=== PATIENT | female | born 1955 | race Caucasian/White ===

== ENCOUNTER → 2018-01-28 15:08 | Outpatient (CLI) | payer BC, SELFPAY ==
--- NOTE | 2018-01-28 15:18 | BD_ITS ---
STUDY: DUAL ENERGY X-RAY ABSORPTIOMETRY / DXA REASON FOR EXAM: Female, 62 years old. Postmenopausal screening TECHNIQUE: Bone Mineral Density (BMD) measurements of lumbar spine and left hip were obtained. COMPARISON: 2005 FINDINGS: Lumbar Spine (L1-L4): g/cm2 (1.129) / T-score (-0.6) / Z-score (0.8) Findings are suggestive of normal bone density with a low fracture risk. Left Femur Total: g/cm2 (0.851) / T-score (-1.2) / Z-score (-0.2) Left Femoral Neck: g/cm2 (0.745) / T-score (-2.1) / Z-score (-0.8) The T-Scores on the most recent prior examination were: Lumbar Spine (L1-L4): There has been worsening of bone density since the previous examination. BD/Dexa Bone Density Study IMPRESSION: The patient is considered normal as outlined below according to World Emmanuel Organization (WHO) criteria with a low fracture risk. There has been worsening of bone density since the previous examination. Reference Information: The T-score is the number of standard deviations above or below the standard which is normal for young adults at their peak bone mineral density. The World Health Organization (WHO) interprets the T-scores as follows: Above -1 Normal bone density Between -1 and -2.5 Osteopenia Equal to / or below -2.5 Osteoporosis As a practical clinical guideline, osteopenia may be graded as follows: Mild -1 through -1.5 Moderate -1.6 through -2.0 Severe -2.1 through -2.4 The Z-score is the number of standard deviations above or below age-matched controls. A Z-score of less than -1.5 would be considered abnormal. References: 1. NIH Osteoporosis and Related Bone Diseases http://www.osteo.org 2. International Society for Clinical Densitometry http://www.iscd.org 3. National Osteoporosis Foundation http://www.nof.org Electronically Signed: Damian Brewer MD at 13:16 EDT , Service support ,
== END ==
PROVIDERS: Family Provider Family Medicine; PCP Family Medicine; Visit Provider Family Medicine
DX: Z78.0 Asymptomatic menopausal state (principal)
CPT/HCPCS: 77080

== ENCOUNTER 2018-04-11 15:00 | Outpatient (RCR) | payer BC, SELFPAY ==
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
--- NOTE | 2018-05-15 16:16 | HP.PTDCSUM ---
HP - PT D/C Summary It has been my pleasure to treat YEFRI DUARTE under orders from Juan M Carbone, for the diagnosis of R shoulder pain for a total of 7 visit(s). Discharge Date: 04/11/18 Please see the following information for a summary of their discharge status. - Subjective Subjective: pt reports that they feel like they are making good progress but credits the weather for the extra sorness they are feeling today. - Pain R shoulder Pain Intensity (Out of 10): 2 - Overall Improvement % Improvement: 85 - Objective Objective/Function: Pt. reports no pain post PT. Pt. continues to progress as expected. Pt. pleased. Pt. urged to be consistent with HEP at home, pt. consents. Pt. has full ROM of R shoulder with minimal increase in symptoms. MMT- 5-/5 throughout without increase in symptoms. Pt. reports increased soreness after work activities. Pt. urged to continue with HEP to increased shoulder stability. - Goals Goal 1:: Pt. to be I with HEP. Goal Progress: Goal Met Goal 2:: Pt. to have full R shoulder ROM without increase in symptoms. Goal Progress: Goal Met Goal 3:: Pt. to have increased R shoulder strength by 1/2 grade of all effected musculature to reduce stress applied to R shoulder with all functional/work activities. Goal Progress: Goal Met Goal 4:: Pt. to have no pain with sleeping allowing for increased quality of life. Goal Progress: Goal Met Goal 5:: Pt. to complete all recreational and work activities with 0-1/10 pain in R shoulder. Goal Progress: Goal Met - Plan Plan: RTC stability/strengthening exercises, work on pain free AAROM progressing to AROM at end ranges of motion as tolerated. Pt. to be Dc to HEP at this point in time. - D/C Information Discharge Comments: Pt. was treated with shoulder strenghening and stability exercises, along with US to reduce symptoms. Pt. progressed very well and has met all goals with PT. Pt. is to continue with exercises on her own at this point in time. If there are questions or concerns regarding this patient's physical therapy, please feel free to call me at [phone]. Thank you for the referral of this patient. Sincerely, Nikolas Montiel
== END 2018-04-11 19:00 | disposition home or self-care (01) ==
LOC: PT 15:00
PROVIDERS: Family Provider Family Medicine; PCP Family Medicine; Visit Provider Family Medicine
DX: M25.511 Pain in right shoulder (principal); G89.29 Other chronic pain
CPT/HCPCS: 97035; 97110; 97161

== ENCOUNTER 2018-06-03 03:35 | Emergency (ER) | payer BC, SELFPAY ==
[2018-06-03 03:36] VITALS: BP 152/114; PULSE 64; RESP 20; TEMP 36.2; O2SAT 97; BMI 29.0
[2018-06-03 04:03] LABS: Bacteria 0 SEEN /hpf (None Seen); Mucous, Urine 0 SEEN /hpf (<or=2+); Squamous Epithelial Cells - UA 0 SEEN /hpf (5-10)
[2018-06-03 04:04] LABS: Color, Urine Red (Yellow); Glucose, Dipstick Normal (Normal); Ketone-Dipstick 5 mg/dl (Negative); Leukocyte Esterase-Dipstick 500 /ul (Negative); Nitrite-Dipstick Negative (Negative); Occult Blood-Urine 250 /ul (Negative); Protein-Dipstick 100 mg/dl (Negative); Urine Bilirubin Dipstick Negative (Negative); Urine Clarity Cloudy (Clear); Urine Urobilinogen Normal (Normal)
[2018-06-03 04:12] LABS: Red Blood Cells-Urine > 100 SEEN /hpf (0-5); White Blood Cells 5-10 SEEN /hpf (0-5)
--- NOTE | 2018-06-03 04:16 | CT_ITS ---
PAINFUL URINATION WITH HEMATURIA,ELEVATED BPBOWEL RESECTION,HYSTERECTOMY,RT HIPHX:KIDNEY CYST. TECHNIQUE: Helically acquired images were obtained of the abdomen and pelvis without oral or IV contrast as per renal stone protocol. A radiation dose optimization technique was used for this scan. IV Contrast dosage and agent: None. Oral contrast: None. COMPARISON: None FINDINGS: Both kidneys are normal in position. The right kidney is atrophic. The left kidney shows multiple cystic structures centrally and these have the appearance of prominent parapelvic cysts. Left hydronephrosis rather than cysts would also be in the differential but is considered less likely. The right and left ureters are nondilated. No renal or ureteral calculi are seen. Adrenal glands are not enlarged. Lung bases: Clear The liver, spleen, pancreas, gallbladder, and biliary system show no CT abnormality on this non-infusion exam. Abdominal aorta is atherosclerotic and is normal in caliber. No ascites or retroperitoneal lymphadenopathy. GI tract: No obstruction. Sigmoid surgical anastomosis which is patent. Normal appendix. Pelvis: Evaluation of the pelvic floor is partly limited secondary to streak artifact related to a right total hip prosthesis. The uterus is surgically absent. The pelvis shows no free fluid or lymphadenopathy. Urinary bladder is poorly distended and suboptimally visualized. Bones: No acute osseous abnormality seen. CT/Abdomen/Pelvis without Cont IMPRESSION: 1. Atrophic right kidney. 2. Numerous parapelvic cysts of the left kidney are believed likely, although note that left hydronephrosis related to UPJ type narrowing would be included in the differential on this non-infusion exam. 3. More definitive evaluation could be obtained with CT urogram technique. Alternatively, diuretic renal scintigraphy could be performed. Renal ultrasound not recommended. Individualized dose optimization techniques were used for this CT. at 0551 Reported and signed by: Valentin Rivera MD Electronically Signed: Valentin Rivera, at 5:48 EST Tel , Service support ,
[2018-06-03] MEDS: Ketorolac 30 MG/ML Syringe IV (04:44)
[2018-06-03 04:58] LABS: Absolute Lymphocyte Count 1.76 X10^3/ul (0.83-4.51); Absolute Neutrophil Count 8.9 X10^3/uL (2.0-7.7); Basophil# 0.05 X10^3/uL; Basophil% 0.4 % (0-1); Eosinophil# 0.16 X10^3/uL; Eosinophils% 1.4 % (0-5); Hematocrit 42.7 % (37-47); Hemoglobin 14.4 g/dl (12.0-15.0); Lymphocyte # 1.76 X10^3/ul (4.0); Lymphocyte % 15.2 % (19-41); Mean Corp Hgb Conc 33.7 g/gl (32-36); Mean Corpuscular Hgb 29.5 pg (27.0-32.0); Mean Corpuscular Volume 87.5 fL (81-99); Monocyte# 0.76 X10^3/uL; Monocyte% 6.5 % (0-10); Neutrophil # 8.87 X10^3/uL (2.7-7.7); Neutrophil % 76.4 % (47-70); Platelet Count 346 K/mm3 (150-450); RBC Distribution Width SD 41.3 fl (35.1-43.9); Red Blood Count 4.88 M/mm3 (4.2-5.4); White Blood Count 11.6 K/mm3 (4.4-11.0)
[2018-06-03 05:00] LABS: POSITIVE COUNT NO; POSITIVE DIFFERENTIAL NO; POSITIVE MORPHOLOGY NO
[2018-06-03 05:13] LABS: Anion Gap 10 (5-15); BUN 20 mg/dL (7-18); BUN/Creat Ratio 16.3 RATIO (10-20); Calcium,Total 9.2 mg/dL (8.5-10.1); Chloride 109 mmol/L (98-107); Creatinine, Serum 1.23 mg/dL (0.55-1.02); EST Glomerular Filtration Rate 47 mL/min (>60); Est Glom Filt Rate - Afr Amer 57 mL/min (>60); Estimated Creatinine Clearance 37.51 ml/min; Glucose 85 mg/dL (74-106); Potassium 4.1 mmol/L (3.5-5.1); Sodium Level 143 mmol/L (136-145)
--- NOTE | 2018-06-03 06:00 | ED.VISSUMM ---
- ER Visit Summary Date of Service: 06/03/18 Chief Complaint: Suprapubic abdominal pain History of Present Illness: The patient is a 62 F who presents with abdominal pain. She complains of lower abdominal pain. This began tonight. She also notes urinary urgency urinary frequency and hematuria. She denies any dysuria. No fevers chest pain shortness of breath vomiting diarrhea. No history of prior similar symptoms. Physical Examination: Afebrile initial blood pressure 152/114 vitals otherwise unremarkable Moist mucous membranes Heart regular rate and rhythm Lungs are clear Abdomen soft nondistended she does have suprapubic abdominal tenderness without guarding without rebound Test Results: Urinalysis showed 500 leukocyte esterase, 250 10 WBCs, greater than 100 RBCs, no bacteria. Labs otherwise notable for white blood cell count 11.6, BUN 20, creatinine 1.23. CT of the abdomen and pelvis shows an atrophic right kidney and numerous parapelvic cysts. No note made of ureteral lithiasis. Emergency Department Course and Treatment: Initially I thought the patient's symptoms may just be due to UTI. Urinalysis does show some pyuria but no bacteria and large hematuria. Given lower abdominal pain that is concerning for possible distal ureteral calculus. Labs and CT were obtained. The does not appear to be any ureterolithiasis. Patient was advised of the findings on her CT. We will treat for UTI and also have the patient follow-up with urology. She was referred. Patient understands to return for new or worsening symptoms and was discharged home. Treatment Plan: [] Disposition: Discharge Impression: Hematuria Suprapubic abdominal pain This note was generated with [employer] dictation software. It may contain incorrect words, spelling, and punctuation that were not noted in review of the chart prior to signing ED Disposition - Plan for ED Patient: Chief Complaint: Complaint Referrals: Juan M Carbone [Primary Care Provider] -
--- NOTE | 2018-06-03 06:03 | ED.DEP ---
ED Disposition - Plan for ED Patient: Chief Complaint: Complaint Instructions: ED UTI Cystitis Female, ED Hematuria Prescriptions: Smz/Tmp Ds [Bactrim Ds] 1 tab PO BID #[id number] tab Referrals: Juan M Carbone [Primary Care Provider] - Lauren Ellis MD [STAFF PHYSICIAN] -
[2018-06-03 06:17] VITALS: RESP 18
--- OUTSIDE RECORDS SUMMARY | 2018-07-15 17:55 | XMS RPT_ITS ---
:1955 Author Organization [facility] Care Team Providers Name Role Phone JUAN M JALLOH Referring Unavailable JUAN M JALLOH E Referring Unavailable JUAN M JALLOH E Referring Unavailable JUAN M JALLOH E Referring Unavailable JUAN M JALLOH E Referring Unavailable JUAN M JALLOH E Referring Unavailable Juan M Jalloh Attending Unavailable Juan M Jalloh Referring Unavailable Juan M Jalloh Primary Care Unavailable Juan M Jalloh Attending Unavailable Juan M Jalloh Referring Unavailable Juan M Jalloh Primary Care Unavailable Referred, Self Attending Unavailable Juan M Jalloh Primary Care Unavailable Juan M Jalloh Primary Care Unavailable Chacorta Whyte Attending Unavailable PROBLEMS PROBLEMS DATE TYPE CONDITION / CODE ATTENDING STATUS SOURCE 06/03/2018 Unknown M25.511 - Pain in Juan M Jalloh Active [facility] right shoulder / Community M25.511(ICD-10) Hospital Repository 01/28/2018 Unknown Z78.0 - Juan M Jalloh Active [facility] Asymptomatic Community menopausal state / Hospital Z78.0(ICD-10) Repository 06/27/2017 Active Unknown / NA Active [facility] UNK(Unknown) Main [place] Repository PROCEDURES PROCEDURES No Procedure Records FoundRESULTS RESULTS DISCHARGE INSTRUCTION Observed: 06/03/2018 Status: F Source: [place] 6:04 AM [facility] [place], [place] REPOSITORY [facility] Medical Records Department [address] [place] [address] Discharge Instruction 06/03/18602 MR#: [id number] Acct: [id number] Name: YEFRI RALPH Rep #: [id number] : 1955 62 From: Chacorta Whyte MD PCP: Juan M Jalloh Status: REG ER ED Disposition - Plan for ED Patient: Chief Complaint: Complaint Instructions: ED UTI Cystitis Female, ED Hematuria Prescriptions: Smz/Tmp Ds [Bactrim Ds] 1 tab PO BID #14 tab Referrals: Juan M Jalloh [Primary Care Provider] - Lauren Ellis MD [STAFF PHYSICIAN] - What to do if you have Problems For any increased pain, shortness of breath, bleeding, nausea or vomiting, chest pain, or any unexpected problems, contact your Primary Care Provider. Call [facility] ([phone]) or report to the closest Emergency Room. Call 911 if necessary. 06/03/18603 <Electronically signed by Chacorta Whyte MD> Date Chacorta Whyte MD Cosigner Signature (If Indicated): Date CC: Juan M Jalloh EMERGENCY DEPARTMENT Observed: 06/03/2018 Status: F Source: GAB[place]EL SUMMARY 6:03 AM [facility] [place], [place] REPOSITORY [facility] Medical Records Department [address] [place] [address] Emergency Department Summary 06/03/18 0600 MR#: [id number] Acct: [id number] Name: YEFRI RALPH Rep #: [id number] : 1955 62 From: Chacorta Whyte MD PCP: Juan M Jalloh Status: REG ER - ER Visit Summary Date of Service: 06/03/18 Chief Complaint: Suprapubic abdominal pain History of Present Illness: The patient is a 62 F who presents with abdominal pain. She complains of lower abdominal pain. This began tonight. She also notes urinary urgency urinary frequency and hematuria. She denies any dysuria. No fevers chest pain shortness of breath vomiting diarrhea. No history of prior similar symptoms. Physical Examination: Afebrile initial blood pressure 152/114 vitals otherwise unremarkable Moist mucous membranes Heart regular rate and rhythm Lungs are clear Abdomen soft nondistended she does have suprapubic abdominal tenderness without guarding without rebound Test Results: Urinalysis showed 500 leukocyte esterase, 250 10 WBCs, greater than 100 RBCs, no bacteria. Labs otherwise notable for white blood cell count 11.6, BUN 20, creatinine 1.23. CT of the abdomen and pelvis shows an atrophic right kidney and numerous parapelvic cysts. No note made of ureteral lithiasis. Emergency Department Course and Treatment: Initially I thought the patient's symptoms may just be due to UTI. Urinalysis does show some pyuria but no bacteria and large hematuria. Given lower abdominal pain that is concerning for possible distal ureteral calculus. Labs and CT were obtained. The does not appear to be any ureterolithiasis. Patient was advised of the findings on her CT. We will treat for UTI and also have the patient follow-up with urology. She was referred. Patient understands to return for new or worsening symptoms and was discharged home. Treatment Plan: [] Disposition: Discharge Impression: Hematuria Suprapubic abdominal pain This note was generated with Dianwoba dictation software. It may contain incorrect words, spelling, and punctuation that were not noted in review of the chart prior to signing ED Disposition - Plan for ED Patient: Chief Complaint: Complaint Referrals: Juan M Jalloh [Primary Care Provider] - What to do if you have Problems For any increased pain, shortness of breath, bleeding, nausea or vomiting, chest pain, or any unexpected problems, contact your Primary Care Provider. Call [facility] ([phone]) or report to the closest Emergency Room. Call 911 if necessary. 06/03/18 0603 <Electronically signed by Chacorta Whyte MD> Date Chacorta Whyte MD Cosigner Signature (If Indicated): Date CC: Juan M Jalloh CBC W/DIFF, AUTOMATED Collected: 06/03/2018 Status: F Source: [place] 4:40 AM [facility] [place] [place] REPOSITORY TYPE CODE TESTS RESULT OUT OF RANGE REFERENCE UNITS LAB L100.1000 4.4-11.0 K/mm3 High WBC 11.6 LAB L100.1200 4.2-5.4 M/mm3 Normal RBC 4.88 LAB L100.1300 12.0-15.0 g/dl Normal HGB 14.4 LAB L100.1400 37-47 % Normal HCT 42.7 LAB L100.1500 81-99 fL Normal MCV 87.5 LAB L100.1600 27.0-32.0 pg Normal MCH 29.5 LAB L100.1700 32-36 g/gl Normal MCHC 33.7 LAB L100.1810 11.6-14.6 % Normal RDW CV 13.0 LAB L100.1820 35.1-43.9 fl Normal RDW SD 41.3 LAB L100.1900 150-450 K/mm3 Normal PLT 346 LAB L100.2000 6.2-12.0 fl Normal MPV 10.0 LAB L100.2100 47-70 % High NEUT% 76.4 LAB L100.2200 19-41 % Low LY% 15.2 LAB L100.2300 0-10 % Normal MONO% 6.5 LAB L100.2400 0-5 % Normal EO% 1.4 LAB L100.2500 0-1 % Normal BASO% 0.4 LAB L100.2550 0.0-0.9 % Normal IM GRAN % 0.100 Result Comment: IG% - Immature Granulocytes (promyelocytes, myelocytes and metamyelocytes) > 1% indicates that a LEFT SHIFT is Present. LAB L100.2620 2.0-7.7 X10 3/uL High Absolute Neut 8.9 LAB L100.2720 0.83-4.51 X10 3/ul Normal Absolute Lymph 1.76 Performed By: #### L100.0100 #### [facility] [address] [place], [place], [address] BASIC METABOLIC Collected: 06/03/2018 Status: F Source: [place] PROFILE ([facility]) 4:40 AM [facility] [place] [place] REPOSITORY TYPE CODE TESTS RESULT OUT OF RANGE REFERENCE UNITS LAB L501.0100 74-106 mg/dL Normal GLU 85 Result Comment: Please note revised GLUCOSE reference range effective 2017. LAB L501.1000 7-18 mg/dL High BUN 20 LAB L501.1100 0.55-1.02 mg/dL High CREAT,SERUM 1.23 Result Comment: The validity of the calculated GFR AND GFRAA in patients over 70 years has not been determined. Clinical correlation is essential. LAB L501.1110 >60 mL/min Low EST GFR 47 Result Comment: Non- GFR Calc LAB L501.1115 >60 mL/min Low EST GFR - AA 57 Result Comment: GFR Calc LAB L501.1255 ml/min Normal Estimated CRCL 37.51 LAB L501.1300 10-20 RATIO Normal BUN/CRE 16.3 LAB L501.2200 8.5-10 mg/dL Normal .1 CA 9.2 LAB L501.5300 136-14 mmol/L Normal 5 NA 143 LAB L501.5600 3.5-5. mmol/L Normal 1 K 4.1 LAB L501.5900 98-107 mmol/L High CL 109 LAB L501.6100 21.0-3 mmol/L Normal 2.0 CO2 24.0 LAB L501.6200 5-15 Normal GAP 10 Performed By: #### L500.2500 #### [facility] [address] [place], [place], [address] ABDOMEN/PELVIS WITHOUT Observed: 06/03/2018 Status: F Source: [place] CONT 4:16 AM [facility] [place] [place] REPOSITORY [facility] [place] [address] Abdomen/Pelvis without Cont MR#: [id number] Acct: [id number] Name: YEFRI RALPH Rep #: [id number] : 1955 F 62 From: Valentin Rivera MD PCP: Juan M Jalloh Status: REG ER Study: Abdomen/Pelvis without Cont Date of Exam: 06/03/18 Exam# [id number] Ordering Dr: Chacorta Whyte MD PAINFUL URINATION WITH HEMATURIA,ELEVATED BPBOWEL RESECTION,HYSTERECTOMY,RT HIPHX:KIDNEY CYST. TECHNIQUE: Helically acquired images were obtained of the abdomen and pelvis without oral or IV contrast as per renal stone protocol. A radiation dose optimization technique was used for this scan. IV Contrast dosage and agent: None. Oral contrast: None. COMPARISON: None FINDINGS: Both kidneys are normal in position. The right kidney is atrophic. The left kidney shows multiple cystic structures centrally and these have the appearance of prominent parapelvic cysts. Left hydronephrosis rather than cysts would also be in the differential but is considered less likely. The right and left ureters are nondilated. No renal or ureteral calculi are seen. Adrenal glands are not enlarged. Lung bases: Clear The liver, spleen, pancreas, gallbladder, and biliary system show no CT abnormality on this non-infusion exam. Abdominal aorta is atherosclerotic and is normal in caliber. No ascites or retroperitoneal lymphadenopathy. GI tract: No obstruction. Sigmoid surgical anastomosis which is patent. Normal appendix. Pelvis: Evaluation of the pelvic floor is partly limited secondary to streak artifact related to a right total hip prosthesis. The uterus is surgically absent. The pelvis shows no free fluid or lymphadenopathy. Urinary bladder is poorly distended and suboptimally visualized. Bones: No acute osseous abnormality seen. CT/Abdomen/Pelvis without Cont IMPRESSION: 1. Atrophic right kidney. 2. Numerous parapelvic cysts of the left kidney are believed likely, although note that left hydronephrosis related to UPJ type narrowing would be included in the differential on this non-infusion exam. 3. More definitive evaluation could be obtained with CT urogram technique. Alternatively, diuretic renal scintigraphy could be performed. Renal ultrasound not recommended. Individualized dose optimization techniques were used for this CT. at 0551 Reported and signed by: Valentin Rivera MD Electronically Signed: Valentin Rivera, at 5:48 EST Tel , Service support , CC: Chacorta Whyte MD; Juan M Jalloh Nursing Attendant: Signed URINALYSIS, COMPLETE Collected: 06/03/2018 Status: F Source: [place] 3:57 AM [facility] [place] [place] REPOSITORY Order Comment: Order Date: 06/03/18 COLOR OF URINE MAY AFFECT DIPSTICK RESULTS. How was Urine Obtained? DISTRICT ENGINEER TO SPECIFY TYPE CODE TESTS RESULT OUT OF RANGE REFERENCE UNITS LAB L400.3000 Yellow COLOR Normal Red LAB L400.3050 Clear Normal CLARITY Cloudy LAB L400.3200 Normal mg/dl Normal GLUCOSE, UR Normal LAB L400.3300 Negative mg/dL Normal BILIRUBIN URINE Negative LAB L400.3400 Negative mg/dl High 5 KETONE UR LAB L400.3465 1.002-1.030 Normal SP.GR. DIPSTX 1.010 LAB L400.3550 5.0 - 8.0 pH UR Normal 7.0 LAB L400.3600 Negative mg/dl High PROT DIPSTX 100 LAB L400.3700 Normal mg/dl Normal UROBILI Normal LAB L400.3750 Negative Normal NITRITE UR Negative LAB L400.3780 Negative /ul High OCCULT BLOOD-UR 250 LAB L400.3800 Negative /ul High LEUK ESTERASE 500 LAB L400.4050 0-5 /hpf WBC Normal 5-10 SEEN LAB L400.4100 0-5 /hpf > Normal RBC-UA 100 SEEN LAB L400.4150 5-10 /hpf SQUAM 0 Normal EPI SEEN LAB L400.4300 None Seen /hpf 0 Normal BACTERIA SEEN LAB L400.4350 <or=2+ /hpf 0 Normal MUCUS, URINE SEEN Performed By: #### L400.0001 #### [facility] [address] [place], [place], [id number] Observed: 06/03/2018 Status: F Source: [place] CULTURE, URINE 3:57 AM [facility] [place] [place] REPOSITORY Order Date: 06/03/18 Urine Culture ORGANISM 1: Escherichia coli [place] Count >100,000 Escherichia coli: REACTION Amoxacillin/Clavulanic Acid $ <=2 S Ampicillin $ <=2 S Ampicillin/Sulbactam $ <=2 S Cefazolin $ <=4 S Cefepime $ <=1 S Ceftriaxone $ <=1 S Ciprofloxacin $ <=0.25 S ESBL - Ertapenim $$$ <=0.5 S Gentamicin $ <=1 S Imipenem *NF <=0.25 S Levofloxacin $ <=0.12 S Nitrofurantoin $ <=16 S Piperacillin/Tazobactam $$ <=4 S Tobramycin $ <=1 S Trimethoprim/Sulfametho $ <=20 S (NF) indicates non-formulary drug at [facility]. Approval by Infectious Disease Specialist required before non-formulary drugs may be ordered and/or dispensed. Performed By: #### M100.0650 #### [facility] [place], [address] PROGRESS Observed: 05/22/2018 Status: COMPLETED Source: [place] 3:39 PM [facility] REPOSITORY HNO ID: [id number] Author: Abebe Castillo Service: (none) Author Type: Physician Type: Progress Notes Filed: 05/22/2018 3:43 PM Note Text: Patient presents for suture removal after placement here 05/12/2018. Denies bleeding, drainage, dehiscence, erythema, or signs of infection. The wound is well healed without signs of infection. The 4 sutures are removed. Wound edges are well approximated. CNOV Observed: 05/22/2018 Status: COMPLETED Source: [place] 3:15 PM [facility] REPOSITORY Office Visit ([facility]) YEFRI RALPH ([id number]) 1955 F Date Time Provider Department 05/22/18 3:15 PM ABEBE CASTILLO [facility] During your visit today, we recorded the following information about you: Temperature Pulse Respiration Blood pressure 98.8 degrees 89/minute 16/minute 122/78 Weight 73.7 kg Abebe Castillo MD 05/22/2018 3:43 PM Signed Patient presents for suture removal after placement here 05/12/2018. Denies bleeding, drainage, dehiscence, erythema, or signs of infection. The wound is well healed without signs of infection. The 4 sutures are removed. Wound edges are well approximated. Referring Provider: SELF [200] Allergies As of Date: 05/22/2018 (No Known Allergies) Date Reviewed: 05/22/2018 Reviewed by: Stacey Lantigua Ma - Fully Assessed Reason for Visit: Suture Removal [105] Cmt: 4 sutures on LEFT thumb x 10 days Primary Visit Diagnosis:Laceration of left thumb without foreign body without damage to nail, subsequent encounter [S61.012D] Prescriptions as of 05/22/2018 Sig: ALENDRONATE 70 MG TABLET Take 1 tablet by mouth once e* CALCIUM 600 + D ORAL Take 1 tablet by mouth once d* OMEPRAZOLE 20 MG CAPSULE,MARCELL* Take 1 capsule by mouth once * IBANDRONATE 150 MG TABLET Take 150 mg by mouth once ghassan* * NEXIUM 40 MG CAPSULE,DELAYED * Take (1) once daily Problem List As Of Date 05/22/2018 Noted Resolved DIAPHRAGMATIC HERNIA [K44.9] INVALID FOR* ACUTE GASTRITIS W/O HEMORRHAGE [K29.00] INVALID FOR* GERD (Gastroesophageal Reflux Disease) [K21.9] Esophageal Reflux [K21.9] INVALID FOR* Unspecified Esophagitis [K20.9] INVALID FOR* Breast mass, right [N63.10] INVALID FOR* Encounter Status:Closed by ABEBE CASTILLO MD on 05/22/18 PT D/C SUMMARY (1) Observed: 05/15/2018 Status: F Source: [place] 4:16 PM [facility] [place] [place] REPOSITORY [facility] [place] [address] Fax REHABILITATION SERVICES DISCHARGE SUMMARY MR#: [id number] Acct: [id number] Name: YEFRI RALPH Rep #: [id number] : 1955 62 From: Nikolas Montiel DPT Referring Dr.: Juan M Jalloh Status: REG RCR Insurance: [employer] INSURANCE HP - PT D/C Summary It has been my pleasure to treat YEFRI RALPH under orders from Juan M Jalloh, for the diagnosis of R shoulder pain for a total of 7 visit(s). Discharge Date: 04/11/18 Please see the following information for a summary of their discharge status. - Subjective Subjective: pt reports that they feel like they are making good progress but credits the weather for the extra sorness they are feeling today. - Pain R shoulder Pain Intensity (Out of 10): 2 - Overall Improvement % Improvement: 85 - Objective Objective/Function: Pt. reports no pain post PT. Pt. continues to progress as expected. Pt. pleased. Pt. urged to be consistent with HEP at home, pt. consents. Pt. has full ROM of R shoulder with minimal increase in symptoms. MMT- 5-/5 throughout without increase in symptoms. Pt. reports increased soreness after work activities. Pt. urged to continue with HEP to increased shoulder stability. - Goals Goal 1:: Pt. to be I with HEP. Goal Progress: Goal Met Goal 2:: Pt. to have full R shoulder ROM without increase in symptoms. Goal Progress: Goal Met Goal 3:: Pt. to have increased R shoulder strength by 1/2 grade of all effected musculature to reduce stress applied to R shoulder with all functional/work activities. Goal Progress: Goal Met Goal 4:: Pt. to have no pain with sleeping allowing for increased quality of life. Goal Progress: Goal Met Goal 5:: Pt. to complete all recreational and work activities with 0-1/10 pain in R shoulder. Goal Progress: Goal Met - Plan Plan: RTC stability/strengthening exercises, work on pain free AAROM progressing to AROM at end ranges of motion as tolerated. Pt. to be Dc to HEP at this point in time. - D/C Information Discharge Comments: Pt. was treated with shoulder strenghening and stability exercises, along with US to reduce symptoms. Pt. progressed very well and has met all goals with PT. Pt. is to continue with exercises on her own at this point in time. If there are questions or concerns regarding this patient's physical therapy, please feel free to call me at [phone]. Thank you for the referral of this patient. Sincerely, Nikolas Montiel <Electronically signed by Nikolas Montiel DPT> 05/15/18 1616 CC: Juan M Jalloh CLS Signed PROGRESS Observed: 05/12/2018 Status: COMPLETED Source: [place] 6:23 PM [facility] REPOSITORY HNO ID: [id number] Author: Abebe Castillo Service: (none) Author Type: Physician Type: Progress Notes Filed: 05/12/2018 7:50 PM Note Text: Patient presents with: Laceration: left thumb x 1 hour on glass, last tetanus 6-7 years ago HPI: Cut the left thumb tonight on a broken glass while doing dishes. Denies weakness or numbness. She takes a baby aspirin daily. Lat tetanus booster was over 5 years ago. PAST MEDICAL HISTORY Diagnosis Date - Diaphragmatic hernia without mention of obstruction or gangrene - GERD (gastroesophageal reflux disease) - Osteopenia PAST SURGICAL HISTORY Procedure Laterality Date - COLONOSCOPY 10/10/2015 - EGD W/O OR W/BRUSH/WASH 10/04/05 EGD - EGD W/O OR W/BRUSH/WASH 01/25/2010 EGD - PAST SURGICAL HISTORY OF Bowel repair - TOTAL ABDOM HYSTERECTOMY 2002 - TOTAL HIP REPLACEMENT Right 11/07/2014 MEDICATIONS: Ibandronate 150 mg tablet Take 150 mg by mouth once every month. esomeprazole mag trihydrate(NEXIUM 40 MG CAP) Take (1) once daily raloxifene hcl(EVISTA 60 MG TAB) Take one(1) tablet daily. ALLERGIES: ALLERGIES No Known Allergies VITALS: BP 120/82 Pulse 76 Temp 37.1 ?C (98.8 ?F) (Tympanic) Resp 16 Wt 73 kg (161 lb) PE: Pleasant, in no acute distress. Accompanied by her . Hand: left hand dominant. Left thumb has a 1.5 cm laceration on the dorsal proximal phalange distal to the MCP joint. Wound bleeds easily with manipulation but stops again in < 1/2 minute. Bleeding in a 3mm fountain observed once. Normal strength and sensation. Procedure: Anesthesia: 2cc 1% lidocaine. Site cleansed with tap water irrigation. Site prepped with povidone solution. Sterile drape and procedure. 6 simple interrupted sutures with 6-0 Surgipro II monofilament. Hemostasis achieved with wound closure. Wound dressed with bacitracin on adhesive bandage and alluminum foam splint. Keep sutures covered and dry for 48 hours. The dressing may be changed as needed. After 48 hours, sutures may be exposed to limited water but not submerged. Avoid flexing thumb 1 week. ASSESSMENT/PLAN: 1. Laceration of left thumb without foreign body without damage to nail, initial encounter - ICD9: 883.0, ICD10: S61.012A - TDAP VACCINE AGE 7+ IM Return for suture removal in 10 days. Note written to avoid flexing her thumb 1 week. Abebe Castillo MD CNOV Observed: 05/12/2018 Status: COMPLETED Source: [place] 6:15 PM [facility] REPOSITORY [facility] YEFRI RALPH ([id number]) 1955 F Date Time Provider Department 05/12/18 6:15 PM ABEBE CASTILLO [facility] During your visit today, we recorded the following information about you: Temperature Pulse Respiration Blood pressure 98.8 degrees 76/minute 16/minute 120/82 Weight 73 kg Abebe Castillo MD 05/12/2018 7:50 PM Addendum Patient presents with: Laceration: left thumb x 1 hour on glass, last tetanus 6-7 years ago HPI: Cut the left thumb tonight on a broken glass while doing dishes. Denies weakness or numbness. She takes a baby aspirin daily. Lat tetanus booster was over 5 years ago. PAST MEDICAL HISTORY Diagnosis Date - Diaphragmatic hernia without mention of obstruction or gangrene - GERD (gastroesophageal reflux disease) - Osteopenia PAST SURGICAL HISTORY Procedure Laterality Date - COLONOSCOPY 10/10/2015 - EGD W/O OR W/BRUSH/WASH 10/04/05 EGD - EGD W/O OR W/BRUSH/WASH 01/25/2010 EGD - PAST SURGICAL HISTORY OF Bowel repair - TOTAL ABDOM HYSTERECTOMY 2002 - TOTAL HIP REPLACEMENT Right 11/07/2014 MEDICATIONS: Ibandronate 150 mg tablet Take 150 mg by mouth once every month. esomeprazole mag trihydrate(NEXIUM 40 MG CAP) Take (1) once daily raloxifene hcl(EVISTA 60 MG TAB) Take one(1) tablet daily. ALLERGIES: ALLERGIES No Known Allergies VITALS: BP 120/82 Pulse 76 Temp 37.1 ?C (98.8 ?F) (Tympanic) Resp 16 Wt 73 kg (161 lb) PE: Pleasant, in no acute distress. Accompanied by her . Hand: left hand dominant. Left thumb has a 1.5 cm laceration on the dorsal proximal phalange distal to the MCP joint. Wound bleeds easily with manipulation but stops again in < 1/2 minute. Bleeding in a 3mm fountain observed once. Normal strength and sensation. Procedure: Anesthesia: 2cc 1% lidocaine. Site cleansed with tap water irrigation. Site prepped with povidone solution. Sterile drape and procedure. 6 simple interrupted sutures with 6-0 Surgipro II monofilament. Hemostasis achieved with wound closure. Wound dressed with bacitracin on adhesive bandage and alluminum foam splint. Keep sutures covered and dry for 48 hours. The dressing may be changed as needed. After 48 hours, sutures may be exposed to limited water but not submerged. Avoid flexing thumb 1 week. ASSESSMENT/PLAN: 1. Laceration of left thumb without foreign body without damage to nail, initial encounter - ICD9: 883.0, ICD10: S61.012A - TDAP VACCINE AGE 7+ IM Return for suture removal in 10 days. Note written to avoid flexing her thumb 1 week. Abebe Castillo MD Referring Provider: SELF [200] Allergies As of Date: 05/12/2018 (No Known Allergies) Date Reviewed: 05/12/2018 Reviewed by: Ofelia Fish Ma - Fully Assessed Reason for Visit: Laceration [1747] Cmt: left thumb x 1 hour on glass, last tetanus 6-7 years ago Primary Visit Diagnosis:Laceration of left thumb without foreign body without damage to nail, initial encounter [S61.012A] Order(s):TDAP VACCINE AGE 7+ IM [[id number]] Order #: [id number] Prescriptions as of 05/12/2018 Sig: IBANDRONATE 150 MG TABLET Take 150 mg by mouth once ghassan* * NEXIUM 40 MG CAPSULE,DELAYED * Take (1) once daily Problem List As Of Date 05/12/2018 Noted Resolved DIAPHRAGMATIC HERNIA [K44.9] INVALID FOR* ACUTE GASTRITIS W/O HEMORRHAGE [K29.00] INVALID FOR* GERD (Gastroesophageal Reflux Disease) [K21.9] Esophageal Reflux [K21.9] INVALID FOR* Unspecified Esophagitis [K20.9] INVALID FOR* Breast mass, right [N63.10] INVALID FOR* Medications Discontinued During This Encounter raloxifene hcl(EVISTA 60 MG TAB) 0 12/15/2009 05/12/2018 Class: Med Update Route: ORAL Sig: Take one(1) tablet daily. Disc: Course of therapy completed Disposition: Return in about 10 days (around 05/22/2018) for suture removal. Follow-up and Disposition History Recorded Letter Text [place] [facility] [address] [place], [place] [address] 05/12/2018 TO WHOM IT MAY CONCERN: This is to confirm that Yefri Marcelino Ramo had an appointment and was seen at the [facility] in the Department of Urgent Care by Abebe Castillo MD on 05/12/2018 for thumb injury. She should not flex her thumb until 05/19/15. Sincerely , Abebe Castillo MD Encounter Status:Closed by ABEBE CASTILLO MD on 05/12/18 INITAL EVALUATION (1) Observed: 02/27/2018 Status: F Source: [place] - PT 12:29 PM [facility] [place] [place] REPOSITORY [facility] Physical Therapy Health[address] [place] [address] Fax REHABILITATION SERVICES INITIAL EVALUATION MR#: [id number] Acct: [id number] Name: RAMOYEFRI THOMPSON Rep #: [id number] : 1955 62 From: Nikolsa Montiel DPT Referring Dr.: Juan M Jalloh Status: REG RCR Insurance: [employer] SELF PAY INSURANCE Patient's Visit Information YEFRI RALPH is a 62 year old F referred to Physical Therapy by Juan M Jalloh with a diagnosis of R shoulder pain. Date of Evaluation: 02/26/18 Physical Therapist: Nikolas Montiel - Visit Plan Frequency: 3x /Week Duration: 4 Weeks Plan: Start with US to reduce symptoms, RTC stability/strengthening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 Allergies/T62572 Hospital 497087(SNOM 0388(RXNORM) Repository ED CT) Drug NO KNOWN [facility] Class/50681 ALLERGIES [address] [place] 1003(SNOMED Repository CT) ENCOUNTERS ENCOUNTERS ADMIT/DISCHARGE ACCOUNT ADMITTING ENCOUNTER LOCATION SOURCE NUMBER CLASS 06/03/2018/06/03/20 [id number] Emergency [address] ing:ED Repository 05/22/2018/05/23/20 [id number] Ambulatory [address] Repository 05/12/2018/05/14/20 [id number] Ambulatory [address] Repository 05/05/2018 [id number] Ambulatory [facility] ing:MASS Repository 04/11/2018/04/11/20 [id number] Ambulatory [address] ing:PT Repository 01/28/2018 [id number] [facility] ing:OPBD Repository 11/06/2017/11/07/19 [id number] Ambulatory [address] Repository 11/02/2017/11/03/19 [id number] Ambulatory [address] Repository 10/25/2017/10/26/19 [id number] Ambulatory [address] Repository 07/05/2017/07/05/20 [id number] Ambulatory [address] Repository 07/05/2017/07/05/20 [id number] Ambulatory [address] Repository 06/27/2017/06/27/20 [id number] Ambulatory [address] Repository 06/19/2017/06/19/20 [id number] Ambulatory [address] Repository PAYERS PAYERS ENCOUNTER GUARANTOR PAYER SUBSCRIBER SOURCE 06/03/2018 ED L Primary YEFRI M Gabriel [id number] [address] Insurance:ANTHEMPolic FAWCETTDOB: Community [place] Number: [id number] [facility], [id number] [place]ository [place] [address]Xue: Date:[id number], [place] () [address]XV: 06/03/2018 Secondary NOT GIVENUNK Gabriel Insurance:SELF PAY [facility] Number: Effective Repository Date:2018-06-03 05/05/2018 ED L Primary NOT GIVENUNK [place] [id number] [place] Insurance:SELF PAY [facility], Number: Effective Repository [place] [address]Nrj: Date:2018-03-28 () 04/11/2018 ED L Primary YEFRI M Gabriel [id number] [place] Insurance:ANTHEMPolic FAWCETTDOB: Community [place] y Number: [id number] [facility], [id number] [place]ository [place] [address]Esv: Date:5197-83-07BJ [address]YXQJ[address], [place] () [address]KL: 04/11/2018 Secondary NOT GIVENUNK [place] Insurance:SELF PAY [facility] Number: Effective Repository Date:2018-02-17 01/28/2018 ED L Primary YEFRI M [place] [id number] [place] Insurance:ANTHEMPolic FAWCETTDOB: Community [place] y Number: [id number] [facility], [id number] [place]ository [place] [address]Qif: Date:9563-31-28[address], [place] () [address]GN: 01/28/2018 Secondary NOT GIVENUNK [place] Insurance:SELF PAY [facility] Number: Effective Repository Date:2018-01-20
== END 2018-06-03 06:17 | disposition home or self-care (01) ==
LOC: ED 04:18
PROVIDERS: Emergency Provider Emergency Medicine; Family Provider Family Medicine; PCP Family Medicine
DX: R10.2 Pelvic and perineal pain (principal); R31.9 Hematuria, unspecified; N26.1 Atrophy of kidney (terminal); K21.9 Gastro-esophageal reflux disease without esophagitis; Z79.899 Other long term (current) drug therapy
CPT/HCPCS: 74176; 80048; 81001; 85025; 87077; 87086; 87088; 87186; 96374; 99284; A4216

== ENCOUNTER → 2020-02-04 | Outpatient (CLI) | payer BC, SELFPAY ==
--- NOTE | 2020-02-04 12:22 | US_ITS ---
STUDY: ULTRASOUND OF THE FEMALE PELVIS - COMPLETE REASON FOR EXAM: Female, 64 years old. Pelvic tenderness/mass on exam LMP: The patient is postmenopausal. TECHNIQUE: Transabdominal TECHNICAL QUALITY: Adequate. COMPARISON: Comparison is made with prior examination dated 08/04/2014. FINDINGS: The patient is status post hysterectomy. The right ovary is non-visualized. The patient is status post right nephrectomy. The left ovary is non-visualized. The patient is status post left nephrectomy. There is no fluid in the cul-de-sac. The pre void volume of the bladder was 76 ml. US/Pelvic (Non ) IMPRESSION: The patient is status post hysterectomy and bilateral oophorectomy. Electronically Signed: Manish Dunlap, at 15:28 EDT , Service support ,
--- NOTE | 2020-02-04 12:22 | BI_ITS ---
MAMMOGRAPHY - BILATERAL SCREENING REASON FOR EXAM: Female, 64 years old. Routine annual screening examination. PERTINENT HISTORY: Non-contributory. TECHNIQUE: Digital bilateral breast rossi (3D mammographic acquisition) in the CC and MLO projections. 2-D mediolateral oblique (MLO) and craniocaudad (CC) views of both breasts were obtained. CAD: Full Field Digital Mammography with Computer Added Detection was performed. COMPARISON: Comparison is made with prior examination dated 10/19/2016 and outside examination dated 11/27/2018. FINDINGS: Breast Composition: There are scattered areas of fibroglandular density. There are no dominant masses or suspicious calcifications. Stable benign-appearing small bilateral axillary lymph nodes. Stable 7 mm well-defined nodule in the axillary region of the right breast. This most likely represents a small lymph node. No other significant abnormalities are identified. There has been no significant change since the prior study. BI/SCREEN MAMM (CAD) W/ROSSI BILAT IMPRESSION: Stable bilateral screening mammogram. Yearly follow-up mammogram recommended. (A) ASSESSMENT CATEGORY: BIRADS Category 2: Benign. A letter regarding these results will be sent to the patient by the facility within 30 days. Approximately 10% of breast cancers are not detected by mammography. A normal mammogram should not delay biopsy of a clinically suspicious abnormality. [id number] Electronically Signed: Manish Dunlap, at 9:15 EDT , Service support ,
--- NOTE | 2020-02-04 12:44 | BD_ITS ---
STUDY: DUAL ENERGY X-RAY ABSORPTIOMETRY / DXA REASON FOR EXAM: Female, 64 years old. MYSQL DATABASE ADMINISTRATOR-SURGICAL AT 48 -- HX OF SMOKING- QUIT AT AGE 32 -- TAKES CALCIUM AND MULTIVITAMIN -- HAS BEEN ON FOSAMAX x16 YRS- NO BREAKS -- DOES MODERATE AMOUNT OF EXERCISE -- HX OF RIGHT HIP REPLACEMENT -- NO ALAN TECHNIQUE: Bone Mineral Density (BMD) measurements of lumbar spine and left hip were obtained. COMPARISON: Comparison is made with prior study dated 01/28/2018. FINDINGS: Lumbar Spine (L1-L4): g/cm2 (1.166) / T-score (-0.1) / Z-score (1.4) Findings are suggestive of normal bone density with a low fracture risk. Left Femur Total: g/cm2 (0.910) / T-score (-0.8) / Z-score (0.4) Left Femoral Neck: g/cm2 (0.815) / T-score (-1.6) / Z-score (-0.2) The T-Scores on the most recent prior examination were: Lumbar Spine (L1-L4): There has been improvement of bone density since the previous examination. Left Femur Total: which represents an improvement of 6.9%. BD/Dexa Bone Density Study IMPRESSION: The patient is considered normal as outlined below according to World Emmanuel Organization (WHO) criteria with a low fracture risk. There has been improvement of bone density since the previous examination. Reference Information: The T-score is the number of standard deviations above or below the standard which is normal for young adults at their peak bone mineral density. The World Health Organization (WHO) interprets the T-scores as follows: Above -1 Normal bone density Between -1 and -2.5 Osteopenia Equal to / or below -2.5 Osteoporosis As a practical clinical guideline, osteopenia may be graded as follows: Mild -1 through -1.5 Moderate -1.6 through -2.0 Severe -2.1 through -2.4 The Z-score is the number of standard deviations above or below age-matched controls. A Z-score of less than -1.5 would be considered abnormal. References: 1. NIH Osteoporosis and Related Bone Diseases http://www.osteo.org 2. International Society for Clinical Densitometry http://www.iscd.org 3. National Osteoporosis Foundation http://www.nof.org Electronically Signed: Manish Dunlap, at 15:29 EDT , Service support ,
== END | disposition home or self-care (01) ==
LOC: OPBD 12:19
PROVIDERS: PCP Family Medicine; Referring Provider Family Medicine; Visit Provider Family Medicine
DX: M85.80 Other specified disorders of bone density and structure, unspecified site (principal); R19.00 Intra-abdominal and pelvic swelling, mass and lump, unspecified site; Z12.31 Encounter for screening mammogram for malignant neoplasm of breast
CPT/HCPCS: 76856; 77063; 77067; 77080

== ENCOUNTER 2020-09-08 20:03 | Outpatient (RCR) | payer MEDICARE, OTHER, SELFPAY ==
[2020-09-08] MEDS: COVID-19 VACC, MRNA(PFIZER)/PF 30 MCG/0.3 ML SYRINGE IM (17:33)
[2020-09-29] MEDS: COVID-19 VACC, MRNA(PFIZER)/PF 30 MCG/0.3 ML SYRINGE IM (17:06)
== END 2020-12-13 23:59 ==
LOC: IMMUN 20:03
PROVIDERS: PCP Family Medicine; Visit Provider Family Medicine
DX: Z23 Encounter for immunization (principal)
CPT/HCPCS: 0001A; 0002A; 91300

== ENCOUNTER → 2020-11-21 15:16 | Outpatient (CLI) | payer MEDICARE, OTHER, SELFPAY ==
[2020-11-21 18:25] LABS: CRP < 2.90 mg/L (0.0-3.0)
[2020-11-23 16:08] LABS: Endomysial Antibody IgA Negative (Negative)
[2020-11-23 16:11] LABS: Immunoglobulin A 197 mg/dL (87-352); t-Transglutaminase IgA <2 U/mL (0-3)
== END ==
PROVIDERS: PCP Family Medicine; Referring Provider Internal Medicine Gastroenterology; Visit Provider Internal Medicine Gastroenterology
DX: R19.7 Diarrhea, unspecified (principal)
CPT/HCPCS: 36415; 82784; 83516; 86140; 86255

== ENCOUNTER → 2021-03-03 08:26 | Outpatient (CLI) | payer MEDICARE, OTHER, SELFPAY ==
--- NOTE | 2021-03-03 08:28 | BI_ITS ---
MAMMOGRAPHY - BILATERAL SCREENING REASON FOR EXAM: Female, 65 years old. Routine annual screening examination. PERTINENT HISTORY: Non-contributory. TECHNIQUE: Digital bilateral breast rossi (3D mammographic acquisition) in the CC and MLO projections. 2-D mediolateral oblique (MLO) and craniocaudad (CC) views of both breasts were obtained. CAD: Full Field Digital Mammography with Computer Added Detection was performed. COMPARISON: Comparison is made with prior study dated 02/04/2020 and 10/19/2016. FINDINGS: Breast Composition: There are scattered areas of fibroglandular density. There are no dominant masses or suspicious calcifications. Stable small benign-appearing bilateral axillary lymph nodes. Stable 7 mm well-defined nodule in the axillary region of the right breast. This most likely is a small lymph node. No other significant abnormalities are identified. There has been no significant change since the prior study. BI/SCRN MAMM (CAD)W/ROSSI BILAT IMPRESSION: Stable bilateral screening mammogram. Yearly follow-up mammogram recommended. (A) ASSESSMENT CATEGORY: BIRADS Category 2: Benign. A letter regarding these results will be sent to the patient by the facility within 30 days. Approximately 10% of breast cancers are not detected by mammography. A normal mammogram should not delay biopsy of a clinically suspicious abnormality. [id number] Electronically Signed: Manish Dunlap MD at 9:35 EDT , Service support ,
== END ==
PROVIDERS: PCP Family Medicine; Referring Provider Family Medicine; Visit Provider Family Medicine
DX: N60.12 Diffuse cystic mastopathy of left breast (principal); Z12.31 Encounter for screening mammogram for malignant neoplasm of breast
CPT/HCPCS: 77063; 77067

== ENCOUNTER → 2022-03-07 | Outpatient (CLI) | payer MEDICARE, OTHER, SELFPAY ==
--- NOTE | 2022-03-07 12:57 | BI_ITS ---
MAMMOGRAPHY - BILATERAL SCREENING REASON FOR EXAM: Female, 66 years old. Routine annual screening examination. PERTINENT HISTORY: Non-contributory. TECHNIQUE: Digital bilateral breast rossi (3D mammographic acquisition) in the CC and MLO projections. 2-D mediolateral oblique (MLO) and craniocaudad (CC) views of both breasts were obtained. CAD: Full Field Digital Mammography with Computer Added Detection was performed. COMPARISON: Comparison is made with prior study dated 03/03/2021 and 02/04/2020. FINDINGS: Breast Composition: There are scattered areas of fibroglandular density. There are no dominant masses or suspicious calcifications. Stable 6 mm well-defined nodule in the axillary region of the right breast suggestive of a small lymph node. Stable bilateral benign-appearing lymph node. No other significant abnormalities are identified. There has been no significant change since the prior study. BI/SCRN MAMM (CAD)W/ROSSI BILAT IMPRESSION: Stable bilateral screening mammogram. Yearly follow-up mammogram recommended. (A) ASSESSMENT CATEGORY: BIRADS Category 2: Benign. A letter regarding these results will be sent to the patient by the facility within 30 days. Approximately 10% of breast cancers are not detected by mammography. A normal mammogram should not delay biopsy of a clinically suspicious abnormality. [id number] Electronically Signed: Manish Dunlap MD at 13:37 EDT ,
== END | disposition home or self-care (01) ==
LOC: OPBI 12:54
PROVIDERS: PCP Family Medicine; Visit Provider Family Medicine
DX: Z12.31 Encounter for screening mammogram for malignant neoplasm of breast (principal)
CPT/HCPCS: 77063; 77067

== ENCOUNTER → 2022-03-09 | Outpatient (CLI) | payer MEDICARE, OTHER, SELFPAY ==
--- NOTE | 2022-03-09 12:20 | STRESSREP ---
Stress Test Report Date: 03/09/2022 Procedure: Exercise tolerance test/imaging study Indications: Chest pain Consent: Per the patient Procedure: The patient exercised on a Marc protocol for 7 minutes achieving a peak heart rate of 144 bpm (93% predicted maximal heart rate) with a peak blood pressure 150/70 mmHg and a peak MET capacity of 10.1 METs. The baseline ECG demonstrated normal sinus rhythm, first-degree AV block, incomplete right bundle branch block. The peak exercise ECG demonstrated sinus tachycardia with complete right bundle branch block. EKG during recovery revealed sinus rhythm, incomplete right bundle branch block. Patient had what appears to be rate dependent complete right bundle branch block. [There were no cardiac dysrhythmias pretest, during exercise, or recovery]. The functional capacity was considered excellent for age. There was [no complaint of chest discomfort during exercise or recovery]. The examination was discontinued secondary to achieving target heart rate. Impression: 1. Technically adequate (percent predicted maximal heart rate greater than 85%) exercise tolerance test 2. Stress test is negative for exercise-induced EKG changes of ischemia 3. The test test is negative for exercise-induced chest pain 4. Functional capacity is excellent for age 5. Nuclear images pending Myocardial perfusion imaging study: Technique: The patient was injected with 11.9 mCi of technetium 99m Cardiolite and subsequently rest SPECT Cardiolite nuclear imaging was obtained in the horizontal long, vertical long, and short axis views. The patient exercised on a Marc protocol. Please see above for details. The patient was injected with 33.1 mCi of technetium 99m Cardiolite and subsequently stress SPECT Cardiolite nuclear imaging was obtained in the horizontal long, vertical long, and short axis views. A gated Cardiolite study at peak stress was obtained. Interpretation: Rest and stress SPECT Cardiolite nuclear imaging status post realignment, normalization, and attenuation correction, demonstrates no evidence of significant ischemia or infarction. The gated Cardiolite study demonstrates no significant regional wall motion abnormalities. The reported LVEF is [greater than 70]%. Impression: 1. There is no evidence of significant ischemia or infarction. 2. The gated Cardiolite study reports an LVEF of greater than 70%. This note was generated with [id number] software. It may contain incorrect words, spelling, and punctuation that were not noted in checking the note before signing.
== END | disposition home or self-care (01) ==
LOC: CVS 06:31
PROVIDERS: PCP Family Medicine; Referring Provider Family Medicine; Visit Provider Family Medicine
DX: R07.9 Chest pain, unspecified (principal)
CPT/HCPCS: 78452; 93017; A9500; A4216